=== PATIENT | male | born 1970 | race Caucasian/White ===

== ENCOUNTER 2020-06-07 16:33 | Emergency (ER) | payer OTHER ==
[2020-06-07 16:57] VITALS: BP 139/100; PULSE 116; TEMP 98.2; BMI 29.5
--- NOTE | 2020-06-07 17:00 | PDOC ---
Rapid Medical Evaluation Chief Complaint: Injury Time Seen by Provider: 06/07/20 16:55 Medical Evaluation: Allergies Allergy/AdvReac Type Severity Reaction Status Date / Time No Known Allergies Allergy Verified 06/07/20 16:51 06/07/20 16:55 I have performed a brief in-person evaluation of this patient. The patient presents with a chief complaint of: Rt wrist/hand and upper left back pain s/p fall from [employer] hitting left side of face. Denies LOC. report no pain to head or neck. report severe pain to right wrist and posterior left shoulder. Injury happened this afternoon Pertinent physical exam findings: moderate TTP to dorsal aspect of right wrist with localized swelling. no TTP to cervical spine or scalp. FROM of cervical spine. mild TTP to posterior left shoulder. I have ordered the following: right wrist, left shoulder x-ray The patient will proceed to the ED for further evaluation. Discharge Disposition - Diagnosis Injury - Discharge Dispostion Condition at time of disposition: Stable - Referrals - Patient Instructions - Post Discharge Activity
[2020-06-07] MEDS ORDERED: KETOROLAC TROMETHAMINE 30 MG/1 ML VIAL IM ONE (17:53)
--- NOTE | 2020-06-07 17:54 | PDOC ---
History of Present Illness - General Chief Complaint: Injury Stated Complaint: FALL Time Seen by Provider: 06/07/20 16:55 History Source: Patient Exam Limitations: No Limitations - History of Present Illness Initial Comments: 06/07/20 18:41 49 year old male with no significant medical or surgical history presents to emergency department after falling backwards. Patient reports while reaching in a dumpster he lost his balance and fell backward turning slightly to left side. STates pain to left ear, left shoulder, and right wrist. Denies head strike , loc, nausea or dizziness. Occurred: reports: just prior to arrival Severity: reports: mild Pain Location: reports: upper extremity Method of Injury: Yes: fall Modifying Factors: improves with: immobilization, pain medication Loss of Consciousness: no loss of consciousness Past History - Travel History Traveled outside of the country in the last 30 days: No - Medical History Allergies/Adverse Reactions: Allergies Allergy/AdvReac Type Severity Reaction Status Date / Time No Known Allergies Allergy Verified 06/07/20 16:51 Home Medications: Ambulatory Orders Ibuprofen [Ibu] 600 mg PO QID #20 tablet 06/07/20 COPD: No - Immunization History Immunization Up to Date: Yes - Psycho-Social/Smoking History Smoking History: Never smoked - Substance Abuse Hx (Audit-C & DAST Scrn) How often the patient has a drink containing alcohol: Never Score: In Men: 4 or > Positive; In Women: 3 or > Positive: 0 Screen Result (Pos requires Nsg. Audit-10AR): Negative In the last yr the pt used illegal drug/Rx for NonMed reason: No Score: Yes response is considered Positive: 0 Screen Result (Positive result requires Nsg. DAST-10): Negative Trauma Specific PMHX - Complaint Specific PMHX Arthritis: No Back Injury: No Neck Injury: No Hx Sacro Iliac Joint Dysfunction: No Review of Systems - Review of Systems Able to Perform ROS?: Yes Is the patient limited Romansh proficient: No Constitutional: No: Chills, Fever HEENTM: No: Nose Pain, Throat Pain, Throat Swelling Respiratory: No: Orthopnea, Shortness of Breath Cardiac (ROS): Yes: See HPI. No: Lightheadedness, Palpitations ABD/GI: No: Nausea, Poor Appetite, Vomiting Musculoskeletal: Yes: Joint Swelling Integumentary: Yes: Erythema (to left ear) Neurological: No: Headache, Numbness *Physical Exam - Vital Signs Last Vital Signs Temp Pulse Resp BP Pulse Ox 98.2 F 116 H 20 139/100 100 06/07/20 16:52 06/07/20 16:52 06/07/20 16:52 06/07/20 16:52 06/07/20 16:52 - Physical Exam General Appearance: Yes: Nourished HEENT: positive: Pharynx Normal Neck: positive: Supple. negative: Lymphadenopathy (R), Lymphadenopathy (L) Respiratory/Chest: positive: Lungs Clear, Normal Breath Sounds, Other (mild tenderness posterior left rib area ) Cardiovascular: positive: Regular Rhythm, Regular Rate Extremity: positive: Normal Capillary Refill, Swelling (+swelling to right wrist, pain with flexion and extension, no crepitus. No swelling to left shoulder, redness or swelling ) Integumentary: positive: Other (small abrasion to pinna of left ear) Neurologic: positive: Fully Oriented, Alert ED Treatment Course - RADIOLOGY Radiology Studies Ordered: Category Date Time Status CHEST PA & LAT [RAD] Stat Radiology 06/07/20 17:53 Ordered RIBS-LEFT SIDE [RAD] Stat Radiology 06/07/20 17:53 Ordered Medical Decision Making - Medical Decision Making 06/07/20 18:46 49 year old male with no significant medical or surgical history presents to emergency department after falling backwards. superficial injury to left ear shoulder pain right wrist sprain -xray of wrist shoulder and rib reassess final read show negative xray for wrist, shoulder and rib normal chest film Discharge - Discharge Information Problems reviewed: Yes Clinical Impression/Diagnosis: Injury Shoulder pain Qualifiers: Chronicity: acute Laterality: left Qualified Code(s): M25.512 - Pain in left shoulder Wrist pain Qualifiers: Laterality: right Qualified Code(s): M25.531 - Pain in right wrist Condition: Stable Disposition: HOME - Admission No - Additional Discharge Information Prescriptions: Ibuprofen [Ibu] 600 mg PO QID #20 tablet - Follow up/Referral - Patient Discharge Instructions Patient Printed Discharge Instructions: Wrist Sprain, DI for Shoulder Pain Additional Instructions: Please remove aba wrap for sleeping and showering Activity as tolerated take medication as prescribed Call primary physician for follow up appointment Print Language: ROMANSH - Post Discharge Activity Work/Back to School Note: Back to Work
[2020-06-07] MEDS ORDERED: KETOROLAC TROMETHAMINE 30 MG/1 ML VIAL ONE (18:05)
== END 2020-06-07 18:53 | disposition home or self-care (01) ==
LOC: JERFT 16:33
PROC: 3E0233Z Introduction of Anti-inflammatory into Muscle, Percutaneous Approach (ICD-10-PCS; principal; 2020-06-07)
DX: M25.512 Pain in left shoulder (principal); M25.531 Pain in right wrist
CPT/HCPCS: 71046-TC-FY; 71101-TC-LT-FY; 73030-TC-LT-FY; 73110-TC-RT-FY; 73130-TC-RT-FY; 99285-25